=== PATIENT | male | born 1960 | race Caucasian/White ===

== ENCOUNTER 2020-06-11 17:46 | Emergency (ER) | payer OTHER, MEDICAID ==
[~2020-06-11] VITALS: Ht 175.3 cm; Wt 115.2 kg
[2020-06-11 18:36] VITALS: Ht 175.3 cm; Wt 115.2 kg
[2020-06-11 20:42] VITALS: BP 161/78
== END 2020-06-11 20:42 | disposition home or self-care (01) ==
LOC: ED 17:46
DX: F07.81 Postconcussional syndrome (principal); S00.03XA Contusion of scalp, initial encounter; I10 Essential (primary) hypertension; Z88.0 Allergy status to penicillin; Z86.73 Personal history of transient ischemic attack (TIA), and cerebral infarction without residual deficits; W18.09XA Striking against other object with subsequent fall, initial encounter; Y93.89 Activity, other specified; Y92.89 Other specified places as the place of occurrence of the external cause; Y99.0 Civilian activity done for income or pay
CPT/HCPCS: J1885